=== PATIENT | female | born 1960 ===

== ENCOUNTER 2025-03-04 11:39 | Outpatient (CLI) | payer OTHER | END 2025-03-04 11:40 | disposition home or self-care (01) | LOC: MAMO-SONO 11:39 | DX: N63.0 Unspecified lump in unspecified breast (principal); Z12.31 Encounter for screening mammogram for malignant neoplasm of breast; J44.9 Chronic obstructive pulmonary disease, unspecified ==

== ENCOUNTER 2025-03-15 10:59 | Outpatient (CLI) | payer OTHER | END 2025-03-15 11:00 | disposition home or self-care (01) | LOC: NUCLEAR 10:59 | DX: Z13.820 Encounter for screening for osteoporosis (principal); M81.0 Age-related osteoporosis without current pathological fracture ==

== ENCOUNTER 2025-07-09 13:52 | Outpatient (CLI) | payer OTHER | END 2025-07-09 13:55 | disposition home or self-care (01) | LOC: RAD 13:52 | PROVIDERS: ATTEND Chiropractor | DX: M99.01 Segmental and somatic dysfunction of cervical region (principal); M99.02 Segmental and somatic dysfunction of thoracic region; M99.03 Segmental and somatic dysfunction of lumbar region; M99.05 Segmental and somatic dysfunction of pelvic region ==